=== PATIENT | female | born 1955 | race Caucasian/White ===

== ENCOUNTER 2025-09-24 19:25 | Inpatient (IN) | payer MEDICARE, BC ==
[~2025-09-24] VITALS: Ht 162.6 cm; Wt 54.4 kg
[2025-09-24 19:35] VITALS: BP 120/81
[2025-09-24] MEDS ORDERED: LORazepam 1 MG TAB PO PRN (19:45)
[2025-09-24 19:57] LABS: BASO # 0.1 10*3/uL (0.0-0.1); BASO % 1.1 % (0.0-1.0); EOS # 0.5 10*3/uL (0.0-0.4); EOS % 6.7 % (1.0-4.0); MEAN CELL VOLUME 96.3 fl (81.0-99.0); MEAN CORPUSCULAR HGB 31.3 pg (27.0-31.0); MEAN PLATELET VOLUME 9.7 fl (9.6-12.3); MONO # 0.6 10*3/uL (0.1-1.0); MONO % 7.0 % (3.0-9.0); NEUT # 4.5 10*3/uL (2.3-7.9); NEUT % 55.5 % (47.0-73.0); NUCLEATED RED BLOOD CELL 0.0 % (0.0-0.0); NUCLEATED RED BLOOD CELL 0.0 10*3/uL (0.0-0.0); PLATELET COUNT AUTOMATED 255 10*3/uL (130-400); RED CELL DISTRI WIDTH 13.5 % (0-14.5)
[2025-09-24 20:09] LABS: ACT PARTIAL THROMBO TIME 25.9 SECONDS (20.0-32.1)
[2025-09-24] MEDS ORDERED: ASPIRIN CHEWABL81 MG PO (20:16)
[2025-09-24] MEDS ORDERED: LIPITOR20 MG PO (20:17)
[2025-09-24] MEDS ORDERED: CIPROFLOXACIN250 MG PO (20:18)
[2025-09-24] MEDS ORDERED: Magnesium Oxid400 MG PO (20:18)
[2025-09-24] MEDS ORDERED: CELEXA20 MG PO (20:18)
[2025-09-24] MEDS ORDERED: MEGACE 40400 MG/10 PO (20:19)
[2025-09-24] MEDS ORDERED: QUETIAPINE FUMA50 M1 PO (20:20)
[2025-09-24] MEDS ORDERED: PROTONIX TR40 M1 PO (20:20)
[2025-09-24] MEDS ORDERED: RIBOFLAVIN400 MG PO (20:20)
[2025-09-24] MEDS ORDERED: VITAMIN D250 MC1 PO (20:21)
[2025-09-24] MEDS ORDERED: TRAZODONE100 MG PO (20:21)
[2025-09-24] MEDS ORDERED: SEROQUEL25 MG PO (20:22)
[2025-09-24] MEDS ORDERED: HYDROCODONE-AC1 EAC1 PO (20:22)
[2025-09-24 20:35] LABS: BUN 19.0 mg/dl (9-23); CPK 78.0 U/L (34-171); SGPT/ALT 20.0 U/L (5-49)
[2025-09-24 20:43] LABS: BILIRUBIN Negative (Negative); BLOOD Negative (Negative); CLARITY Cloudy (Clear); COLOR Dark Yellow (Yellow); KETONE Negative (Negative); LEUKO ESTERASE 3+ (Negative); NITRITE Negative (Negative); PH 6.5 (4.5-8.0); SPECIFIC GRAVITY 1.015 (1.001-1.030); UROBILINOGEN 0.2 E.U./dl (0.0-1.0)
[2025-09-24 20:47] LABS: ETHYL ALCOHOL 4.4 mg/dl (<3)
[2025-09-24 20:50] LABS: URINE AMPHETAMINES Negative (1000ng/ml); URINE BARBITURATES Negative (200ng/ml); URINE BENZODIAZEPINES Negative (200ng/ml); URINE CANNABINOIDS (THC) Negative (50ng/ml); URINE COCAINE Negative (300ng/ml); URINE METHADONE Negative (300ng/ml); URINE OPIATES Negative (300ng/ml); URINE PHENCYCLIDINE Negative (25ng/ml)
[2025-09-24 20:51] LABS: BACTERIA 1+; EPITHELIAL CELLS 21-30; MUCOUS 1+; RBC 0-2 rbc/hpf (0-2); WBC 31-40 wbc/hpf (0-5)
[2025-09-24] MEDS ORDERED: MG-AL HYDROXIDE/SIMETICONE 30 ML UDC PO PRN (22:45)
[2025-09-24] MEDS ORDERED: ACETAMINOPHEN 325 MG TAB PO PRN (22:45)
[2025-09-25 08:00] VITALS: BP 121/74
[2025-09-25 08:30] LABS: LDL CHOLESTEROL 50.0 mg/dL (9-159)
[2025-09-25] MEDS ORDERED: Menthol/Zinc Oxide 4 GM THIN T SCH (09:00)
[2025-09-25] MEDS ORDERED: Cholecalciferol 2,000 UNIT TABLET (50 MCG) PO SCH (09:00)
[2025-09-25] MEDS ORDERED: Ciprofloxacin Hydrochloride 500 MG TAB PO SCH (09:00)
[2025-09-25] MEDS ORDERED: MEGESTROL ACETATE 400 MG/10 ML UDC PO SCH (09:00)
[2025-09-25] MEDS ORDERED: ASPIRIN ENTERIC COATED 81 MG TAB PO SCH (09:00)
[2025-09-25] MEDS ORDERED: MAGNESIUM OXIDE 400 MG TAB PO SCH (09:00)
[2025-09-25] MEDS ORDERED: Rivastigmine Tartrate 4.6 MG/24 HR PATCH T SCH (09:55)
[2025-09-25] MEDS ORDERED: DIVALPROEX (DR) 250 MG TAB PO SCH (09:55)
[2025-09-25] MEDS ORDERED: LORazepam 1 MG TAB PO PRN (10:05)
[2025-09-25] MEDS ORDERED: hydrOXYzine hydrochloride 50 MG/ML VIAL IM PRN (10:10)
[2025-09-25] MEDS ORDERED: Water, Sterile 10 ML VIAL IM PRN (10:20)
[2025-09-25 20:00] VITALS: BP 151/85
[2025-09-25] MEDS ORDERED: Mirtazapine 15 MG TAB PO SCH (21:00)
[2025-09-25] MEDS ORDERED: Memantine Hydrochloride 5 MG TAB PO SCH (21:00)
[2025-09-25] MEDS ORDERED: ATORVASTATIN CALCIUM 20 MG TAB PO SCH (21:00)
[2025-09-26 08:00] VITALS: BP 142/82
[2025-09-26] MEDS ORDERED: risperiDONE 1 MG TAB PO SCH (09:25)
[2025-09-26 20:00] VITALS: BP 134/95
[2025-09-26] MEDS ORDERED: DIVALPROEX (DR) 500 MG TAB PO SCH (21:00)
[2025-09-27 08:26] VITALS: BP 102/75
[2025-09-27 20:00] VITALS: BP 141/73
[2025-09-28 08:00] VITALS: BP 128/76
[2025-09-28] MEDS ORDERED: Rivastigmine Tartrate 9.5 MG/24 HR PATCH T SCH (09:00)
[2025-09-28] MEDS ORDERED: Trihexyphenidyl Hydrochlorid 2 MG TAB PO SCH (13:00)
[2025-09-28 20:00] VITALS: BP 133/87
[2025-09-29 10:05] VITALS: BP 145/83
[2025-09-29] MEDS ORDERED: Menthol/Zinc Oxide 4 GM THIN T PRN (15:16)
[2025-09-29 20:00] VITALS: BP 113/77
[2025-09-30 06:23] LABS: BUN 29.0 mg/dl (9-23); SGPT/ALT 21.0 U/L (5-49); VALPROIC ACID (DEPAKENE) 79.0 ug/ml (50-100)
[2025-09-30 06:44] LABS: BASO # 0.1 10*3/uL (0.0-0.1); BASO % 0.9 % (0.0-1.0); EOS # 0.4 10*3/uL (0.0-0.4); EOS % 4.5 % (1.0-4.0); MEAN CELL VOLUME 96.0 fl (81.0-99.0); MEAN CORPUSCULAR HGB 31.1 pg (27.0-31.0); MEAN PLATELET VOLUME 10.6 fl (9.6-12.3); MONO # 0.7 10*3/uL (0.1-1.0); MONO % 7.8 % (3.0-9.0); NEUT # 5.6 10*3/uL (2.3-7.9); NEUT % 61.0 % (47.0-73.0); NUCLEATED RED BLOOD CELL 0.0 % (0.0-0.0); NUCLEATED RED BLOOD CELL 0.0 10*3/uL (0.0-0.0); PLATELET COUNT AUTOMATED 312 10*3/uL (130-400); RED CELL DISTRI WIDTH 13.6 % (0-14.5)
[2025-09-30 08:00] VITALS: BP 128/86
[2025-09-30 20:00] VITALS: BP 123/76
[2025-10-01 08:00] VITALS: BP 148/84
[2025-10-01] MEDS ORDERED: RIVASTIGMINE 13.3 MG/24 HR TDM T SCH (09:00)
[2025-10-01 20:00] VITALS: BP 110/80
[2025-10-02 08:17] VITALS: BP 140/82
[2025-10-02 20:00] VITALS: BP 129/97
[2025-10-03 08:00] VITALS: BP 152/88
[2025-10-03 20:32] VITALS: BP 152/88
[2025-10-04] MEDS ORDERED: TRIHEXYPHENIDYL2 M3 PO (09:38)
[2025-10-04] MEDS ORDERED: MIRTAZAPINE15 M2 PO (09:38)
[2025-10-04] MEDS ORDERED: DIVALPROEX SOD500 MG PO (09:38)
[2025-10-04] MEDS ORDERED: RIVASTIGMINE1 EAC2 T (09:38)
[2025-10-04] MEDS ORDERED: MEMANTINE HCL10 MG PO (09:38)
[2025-10-04] MEDS ORDERED: RISPERDAL1 M1 PO (09:38)
[2025-10-04] MEDS ORDERED: VITAMIN D250 MC1 PO (10:39)
[2025-10-04] MEDS ORDERED: Magnesium Oxid400 MG PO (10:39)
[2025-10-04] MEDS ORDERED: LIPITOR20 MG PO (10:39)
[2025-10-04] MEDS ORDERED: RIBOFLAVIN400 MG PO (10:39)
[2025-10-04] MEDS ORDERED: PROTONIX TR40 M1 PO (10:39)
[2025-10-04] MEDS ORDERED: ASPIRIN CHEWABL81 MG PO (10:39)
[2025-10-04] MEDS ORDERED: MEGACE 40400 MG/10 PO (10:39)
== END 2025-10-04 14:07 | DRG 883 ==
LOC: ED 19:25 → 3N 21:45
PROVIDERS: Counselor Professional; Internal Medicine; ADMIT Psychiatry & Neurology Psychiatry; ATTEND Psychiatry & Neurology Psychiatry
PROC: GZHZZZZ Group Psychotherapy (ICD-10-PCS; principal; 2025-09-24)
PROC: GZ51ZZZ Individual Psychotherapy, Behavioral (ICD-10-PCS; 2025-09-24)
DX: F63.81 Intermittent explosive disorder (principal); N18.32 Chronic kidney disease, stage 3b; F02.818 Dementia in other diseases classified elsewhere, unspecified severity, with other behavioral disturbance; F33.9 Major depressive disorder, recurrent, unspecified; F41.1 Generalized anxiety disorder; G30.9 Alzheimer's disease, unspecified; Z66 Do not resuscitate; K21.9 Gastro-esophageal reflux disease without esophagitis; E78.5 Hyperlipidemia, unspecified; G20.A1 Parkinson's disease without dyskinesia, without mention of fluctuations